=== PATIENT | male | born 1990 | race American Indian/Alaskan Native ===

== ENCOUNTER 2016-12-18 09:59 | Emergency (ER) | payer SELFPAY ==
[2016-12-18 11:04] VITALS: BP 136/78
--- NOTE | 2016-12-18 11:29 | Emergency Department Report ---
Suture[facility]Staple Removal - [facility] Chief Complaint: Laceration/Recheck/Suture Stated Complaint: SUTURE REMOVAL Time Seen by Provider: 12/18/16 11:24 When Sutures or Mele Placed: >14 Days Ago Wound Location: 26-year-old male presents for suture removal. ED Review of Systems ROS: Stated complaint: SUTURE REMOVAL Other details as noted in HPI Constitutional: denies: chills, fever Eyes: denies: eye pain, eye discharge, vision change ENT: denies: ear pain, throat pain Respiratory: denies: cough, shortness of breath, wheezing Cardiovascular: denies: chest pain, palpitations Endocrine: no symptoms reported Gastrointestinal: denies: abdominal pain, nausea, diarrhea Genitourinary: denies: urgency, dysuria Musculoskeletal: denies: back pain, joint swelling, arthralgia Skin: as per HPI (suture placed at [facility] one and a half months ago for laceration to left flank). denies: rash, lesions Neurological: denies: headache, weakness, paresthesias Psychiatric: denies: anxiety, depression Hematological/Lymphatic: denies: easy bleeding, easy bruising ED Past Medical Hx - Past Medical History Previous Medical History?: No - Surgical History Past Surgical History?: No - Social History Smoking Status: Current Every Day Smoker Substance Use Type: None Suture Removal Exam - Exam General: Vital signs noted. No distress. Alert and acting appropriately. Patient has one Prolene suture in middle of half-inch laceration on left flank midaxillary line appears fully healed and no signs of infection no erythema no wound dehiscence drainage and no foul odor appears fully healed. Wound: No Pathologic Erythema, No Tenderness, No Drainage, No Pus, No Wound Dehiscence Other Systems: All other systems reviewed and are unremarkable. ED Course Vital Signs 12/18/16 10:58 Temperature 97.8 F Pulse Rate 59 L Respiratory 16 Rate Blood Pressure 136/78 O2 Sat by Pulse 100 Oximetry ED Recheck MDM - Differential Diagnosis Suture/Staple Removal - Medical Decision Making A/P: Simple suture removal 1-1 Prolene suture removed from wound site left flank appears fully healed no signs of infection or wound dehiscence 2-Patient states that he had sutured placed at [facility] about a month and a half ago for a laceration secondary to broken glass falling on his side. 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 Patient has no difficulty breathing wound is very superficial and fully healed 3-f/u with primary care doctor Critical care attestation.: If time is entered above; I have spent that time in minutes in the direct care of this critically ill patient, excluding procedure time. ED Disposition Clinical Impression: Visit for suture removal Disposition: DISCHARGED TO HOME OR SELFCARE Is pt being admited?: No Does the pt Need Aspirin: No Condition: Stable Instructions: Suture Removal (ED) Referrals: [facility] [Outside] - 3-5 Days Forms: Work/School Release Form(ED) Time of Disposition: 11:28
== END 2016-12-18 11:34 | disposition home or self-care (01) ==
LOC: ED 09:59
DX: S31.119D Laceration without foreign body of abdominal wall, unspecified quadrant without penetration into peritoneal cavity, subsequent encounter (principal); F17.200 Nicotine dependence, unspecified, uncomplicated; W45.8XXD Other foreign body or object entering through skin, subsequent encounter; Y93.89 Activity, other specified; Y99.8 Other external cause status; Y92.89 Other specified places as the place of occurrence of the external cause